=== PATIENT | male | born 1975 | race Caucasian/White ===

== ENCOUNTER 2021-07-30 09:14 | Outpatient (CLI) | payer BC, SELFPAY ==
--- NOTE | 2021-07-30 09:00 | DI.RAD_ITS ---
Exam(s) XR KNEE RT 3V AP,LAT,SHERON EXAM: XR KNEE RT 3V AP,LAT,SHERON CLINICAL HISTORY: fall skiing TECHNIQUE: COMPARISON: No exams were available for comparison FINDINGS: Three views were obtained. There may be a small joint effusion visible on the lateral view of the kn ee. There is no evidence of acute fracture or dislocation. IMPRESSION: RADIATION DOSE DELIVERED: Total DLP
== END 2021-07-30 09:15 | disposition home or self-care (01) ==
LOC: DIORS 09:14
PROVIDERS: PCP Family Medicine; Visit Provider Physician Assistant Surgical
DX: M25.561 Pain in right knee; S89.81XA Other specified injuries of right lower leg, initial encounter; V00.321A Fall from snow-skis, initial encounter
CPT/HCPCS: 73562

== ENCOUNTER 2021-08-12 00:49 | Outpatient (CLI) | payer BC, SELFPAY ==
--- NOTE | 2021-08-12 15:20 | DI.MRI_ITS ---
Exam(s) MR LOWER JOINT RT WO EXAM: MR LOWER JOINT RT WO CLINICAL HISTORY: PAIN,INJURY,acute traumatic internal derangement,s83.104a,s89.91xa. TECHNIQUE: Multiplanar multisequence MRI was performed. COMPARISON: CR XR KNEE RT 3V AP,LAT,SHERON from 07/30/2021 FINDINGS: BONES: Mild marrow edema in the posterior aspect of the medial tibial plateau. No discrete fracture. JOINTS: Articular cartilage is unremarkable. A moderate-sized effusion is present. TENDONS: Extensor mechanism: Unremarkable. Medial retinaculum: Unremarkable. Lateral retinaculum: Unremarkable. Popliteus: Unremarkable. MUSCLES: Unremarkable. MENISCI: There is a longitudinal tear through the posterior horn of the medial meniscus. There is a minimal horizontal component. The root appears intact.. The lateral meniscus is unremarkable. SOFT TISSUES: Unremarkable. LIGAMENTS: Anterior Cruciate: Indistinct, consistent with a full-thickness tear. Posterior Cruciate: Unremarkable. Medial Collateral:Unremarkable. Lateral Collateral: Unremarkable. OTHER: IMPRESSION: 1. Full-thickness tear of the anterior cruciate ligament. 2. Longitudinal tear of the posterior horn of the medial meniscus. DATA REPOSITORY:
== END 2021-08-12 01:09 ==
PROVIDERS: PCP Family Medicine; Visit Provider Student in an Organized Health Care Education/Training Program
DX: M25.561 Pain in right knee (principal); S89.81XA Other specified injuries of right lower leg, initial encounter; M25.461 Effusion, right knee; S83.241A Other tear of medial meniscus, current injury, right knee, initial encounter; S83.511A Sprain of anterior cruciate ligament of right knee, initial encounter; X58.XXXA Exposure to other specified factors, initial encounter
CPT/HCPCS: 73721

== ENCOUNTER 2022-05-15 06:13 | Day surgery (SDC) | payer BC, SELFPAY ==
[2022-05-15] VITALS (12 sets, daily range): BP systolic 84–119; BP diastolic 45–83; PULSE 54–59; RESP 16–21; TEMP 36.3–36.8; O2SAT 57–98; BMI 29.7
[2022-05-15] MEDS: Lactated Ringers 1,000 ML 30 ML IV (06:52)
--- NOTE | 2022-05-15 07:05 | W.ANESPRE ---
General Info Date of Service Date Performed: 05/15/22 Height: 6 ft Weight: 99.5 kg Body Mass Index (BMI): 29.7 Surgical Procedure: Operation Date: 05/15/22 07:40 Proposed Procedure Side Surgeon p Knee ACL Reconstruction (Quadriceps Allograft) and any indicated Meniscal, Chondral or Synovial Surgery Sj Adorno MD Meds Allergies and Home Medications Allergies Allergy/AdvReac Type Severity Reaction Status Date / Time No Known Allergies Allergy Verified 04/08/22 14:59 Home Medication Medication Instructions Recorded sertraline 25 mg tablet (Zoloft) 25 mg PO DAILY 04/08/22 aspirin 81 mg tablet,delayed 81 mg PO DAILY Prevent blood clot 05/15/22 release 14 days #14 tabs naproxen 250 mg tablet 250 - 500 mg PO BID PRN #40 tabs 05/15/22 oxycodone 5 mg tablet 5 - 10 mg PO Q4H PRN moderate to 05/15/22 severe pain #30 tabs Current Visit Medications: Current Medications Generic Name Dose Route Start Last Admin Trade Name Mariana PRN Reason Stop Dose Admin Ringer's Solution 1,000 mls @ 30 mls/hr 05/15/22 06:00 05/15/22 06:52 IV 05/15/22 16:00 30 mls/hr INFUSION GAUTAM Administration Cefazolin Sodium/Dextrose 2 gm in 50 mls @ 100 mls/hr 05/15/22 06:00 Ancef Duplex IVPB 05/15/22 23:59 PREOP GAUTAM IV Miscellaneous Supplies 1 each 05/15/22 06:00 Iv Access IV 05/15/22 23:59 DIRECTED GAUTAM Sodium Chloride 0 ml 05/15/22 06:00 Normal Saline Flush 10 Ml Syr IV 05/15/22 23:59 PRN PRN Sodium Chloride 0 ml 05/15/22 06:00 Normal Saline 10 Ml Vial IJ 05/15/22 23:59 DIRECTED PRN Sterile Water 0 ml 05/15/22 06:00 Water,Injection,Sterile 10 Ml Vial IJ 05/15/22 23:59 DIRECTED PRN PFSH Active Problems Active Problems: Problem Status Onset Code Acute medial meniscal injury of right knee S83.8X1A Right ACL tear 07/08/21 S83.511A Medical History Medical History Anxiety Surgical History Surgical History History of dental surgery History of fracture Jaw wired Tobacco Smoking/Tobacco Use Status: Former Tobacco Use Alcohol Alcohol Intake: current Alcohol intake frequency: 0-2 drinks per day Alcohol type: beer, wine and hard liquor Substance Use Substance use: Occasionally Substance use type: marijuana Vital Signs and Lab Results Vital Signs Most Recent Vital Signs in EMR: Most Recent Vital Signs Temp Pulse Resp BP Pulse Ox 36.8 C 57 L 18 109/77 57 L 05/15/22 06:32 05/15/22 06:32 05/15/22 06:32 05/15/22 06:32 05/15/22 06:32 Lab Results Blood Type / Crossmatch: No Data to Display Complete Blood Count: No Data to Display Complete Metabolic Panel: No Data to Display Liver Function Panel: No Data to Display Coagulation Panel: No Data to Display Cardiac Panel: No Data to Display Arterial Blood Gas: No Data to Display Venous Blood Gas: No Data to Display Pancreas Panel: No Data to Display Thyroid Panel: No Data to Display Infectious Disease: No Data to Display Blood Cultures: No Data to Display Toxicology Panel: No Data to Display Anesthesia Assessment and Plan Anesthesia History Personal History: No History of Anesthesia Complications Family History: No Family History of Anesthesia Complications Exercise Tolerance Exercise Tolerance: Metabolic Equivalents>4 Pertinent Negatives Pertinent Negatives: No Symptoms of GERD, No Major Cardiovascular Symptoms or Complaints, No Major Pulmonary Symptoms or Complaints and No History of CVA/TIA Cardiac & Pulmonary Exam Cardiac Exam: Normal S1/S2 Heart Sounds Pulmonary Exam: Clear Bilateral Breath Sounds Implantable Cardiac Device Does patient have a Pacemaker or an ICD?: No Airway Exam Known Difficult Airway: No Mallampati Class: 1 Mouth Opening: Normal (> 3cm) Thyromental Distance: Greater than 3 cm Neck Range of Motion: Full ROM Neck Circumference: Normal Teeth Condition: Normal Dentition ASA Classification ASA Score: ASA 2 Emergency Case?: No NPO Status NPO Status: NPO Clears >2 hours, Solids >8 hours Anesthesia Plan Resuscitation Status: Full Code Anesthesia Technique: General Anesthesia Airway Planned: Endotracheal Tube Pain Management: Surgeon and patient request nerve block (Right femoral nerve block for post op pain) Monitors Used: Standard Monitors
[2022-05-15] MEDS: ceFAZolin 2 GM/50 ML BAG IVPB (07:39)
--- NOTE | 2022-05-15 08:00 | W.PM.OP ---
Date of service: 05/15/22 Time of Service: 07:30 Operative Note Operative Note DATE OF PROCEDURE: 05/15/22 PRE-OP DIAGNOSIS: Right knee: 1. ACL rupture 2. Medial meniscus tear PROCEDURE: Right knee: 1. ACL reconstruction, CPT #30115: Quadriceps allograft 2. Medial meniscus repair, CPT #28113 SURGEON: Sj Adorno SENIOR FIELD SERVICE ENGINEER: Ashley Hirsch ANESTHESIA TYPE: Local By Surgeon, General LMA/ETT and Primary Nerve Block Refer to Anesthesia Record ESTIMATED BLOOD LOSS: 10 TOURNIQUET TIME: 0 COMPLICATIONS: None Patient was transported to: PACU Patient's condition: stable Implants: Arthrex ACL TightRope II RT and ABS with 8x12 mm cortical button QuadLink pre-sutured quadriceps allograft: 10 x70 mm Indications: Please see complete medical record for details. Findings: Exam under anesthesia: Full range of motion, grossly positive Bindu, stable varus valgus stress Arthroscopic findings: Mild suprapatellar adhesions. Intact lateral compartment. Complete ACL disruption mid substance to proximal with scarring of the tibial stump to the PCL. Vertical fairly nondisplaced medial meniscus tear starting about the body root junction peripherally fairly close to the meniscus and capsule and continuing about alf into the posterior horn becoming more red-white zone. On probing, this portion of the meniscus could be displaced into the medial compartment. Stable root. No additional tears of meniscal body. Articular cartilage intact throughout Procedure Description: In the operating room, general anesthesia was induced. The patient was positioned supine on the operating room table. All bony prominences were well-padded. Preoperative antibiotics were administered. The knee was prepped and draped in the usual sterile fashion. The correct patient, procedure, and side of the procedure were all verified prior to incision. Exam under anesthesia was performed. 20 cc of a 50:50 mixture of bupivacaine and lidocaine containing epinephrine was infiltrated about the planned anteromedial, anterolateral, lateral distal femoral, and pretibial surgery sites. The standard high and tight anterolateral and anteromedial portals were established and a complete diagnostic arthroscopy was performed with relevant findings detailed above. A passport cannula was inserted in both the anteromedial and anterolateral portals. The medial meniscus tear was inspected with findings detailed above. Given the largely red zone location of the tear with healthy tissue, decision was made to proceed with repair, especially considering concomitant ACL reconstruction. A small amount of white zone tissue that was frayed was resected. Due to the peripheral and vertical nature of the tear, an outside in technique was used for the zone near the posterior horn meniscal body junction. An 18-gauge needle was used in an outside?in fashion to trephinate the capsule and peripheral meniscus tissue. The meniscal rasp was used through the tear followed by the shaver to optimize tissue for healing as well. A curved micro suture lasso was used to target the tear starting at the anterior aspect. A small incision was made posterior medially at the joint line about the site with spreading of subcutaneous tissue to expose capsule. A second microsuture lasso was placed from outside to in with 1 device superior to the meniscus and the other inferior. The [employer] claw retriever was used to retrieve the nitinol shuttle sutures and a 0.9 mm suture tape passed back outside the posterior medial knee creating a vertical circumferential repair stitch. An [facility] arthroscopic knot was used to secure this repair down to capsule with the knee in extension. This outside?in vertical circumferential repair was repeated more posteriorly with an additional suture. Lastly, the knee scorpion was used to target the most posterior horn aspect of the tear placed in a circumferential stitch through the remnant meniscal tissue and around the more red-white zone tear in this location and secured with an [facility] arthroscopic knot taking care to direct the knot inferiorly and peripherally. There was excellent repair anatomy and stability of the tear. In the intercondylar area, the ACL remnant was removed leaving enough footprint on the femur and tibia to localize anatomic socket placement. A minimal notchplasty was performed to allow proper visualization of the back wall. The graft was measured and prepared on the back table. The TightRope II BTB and TightRope II ABS adjustable-loop cortical suspensory fixation implants were loaded on QuadLink pre-sutured quadriceps allograft. The femoral and tibial ends each measured 10 mm. The graft was marked at 20 mm from each end. On the ABS side, the tensioning sutures were marked and a shuttle suture was added. The graft was manually tensioned and the construct did not demonstrate any elongation. The graft was then compressed in a 9 mm graft tube and covered with vancomycin soaked sponges. The femoral guide was then placed through the anterolateral portal carefully targeting the appropriate anatomic ACL origin. The outer 9 mm diameter of the guide was positioned with a few millimeters of space between the proximal and posterior articular margins. On the lateral thigh, drill guide position and angle adjusted to about 60 degree angle to the longitudinal axis of the femur in the coronal plane and 20 degree angle to the trans-epicondylar axis in the axial plane to create the most optimal femoral socket. Knife and snap were used to open the skin and IT band and placed the drill guide on bone while maintaining appropriate position on the lateral wall. The tunnel length was noted to be used for marking and passing the femoral button. The flip cutter was then drilled to the appropriate location. The drill guide malleted 7 mm into the cortex. The remainder of the targeting guide removed. The FlipCutter was deployed to 9.5 mm and retrograde reaming done to a depth of 30 mm. Bony debris was removed with the shaver. The flip cutter was then closed, withdrawn, and a FiberStick used to pass a #2 FiberWire shuttle stitch, which was withdrawn out the anterolateral portal. The tibial guide was then used to target the anatomic ACL insertion through the anteromedial portal. The drill angle adjusted to 57.5 degrees and a pretibial incision made. The drill guide was placed on bone, tunnel length noted, and the flip cutter drilled to the appropriate location. The drill guide malleted 7 mm into the cortex. The remainder of the targeting guide removed. The FlipCutter was deployed to 9.5 mm and retrograde reaming done to a depth of 30 mm. Bony debris was removed with the shaver. The flip cutter was then closed, withdrawn, and a FiberStick used to pass a #2 FiberWire shuttle stitch, which was withdrawn out the anteromedial portal. The mechanical shaver was used to remove bone debris as well as chamfer and remove soft tissue from the edges of the sockets. A femoral shuttle sutures were withdrawn out the anterior medial portal. The PassPort was removed. This portal dilated to accommodate the graft size. The graft was brought over to the knee and the femoral sutures shuttled out the lateral thigh and advanced until the button was near the far cortex. Under arthroscopic visualization with the knee slightly hyperflexed, and the button was then passed and flipped on the far cortex. Counter traction was then maintained on the tibial side of the graft while it was carefully advanced into the knee and then about 15 mm into the femoral socket. The tibial sutures were then shuttled through the tibial tunnel and passing stitch removed while carefully noting the tensioning stitches. The graft was then dunked about 15 mm into the tibial socket. 8x12 mm ABS button was then loaded to the ABS loop and tension sutures used to bring the cortical button down to bone. The graft was advanced and then provisionally tensioned on both the femoral and tibial sides. The knee was then cycled 22 times, tensioning rechecked, and final tightening done with the knee in full extension with a moderate reverse Bindu maintained. The graft position and tension were appropriate. There was no impingement in full extension. Bindu exam was stable. Femoral passing sutures were removed. Backup knots were then tied on both sides and suture tails cut. The knee and all portals were copiously irrigated and then knee drained of arthroscopic fluid. 3-0 Monocryl was used to close the portals and small incisions in a buried interrupted fashion. Mastisol, Steri-Strips, Xeroform, 4 x 4 gauze, and sterile soft roll was applied. The extremity was wrapped gently with an Jordi bandage. A soft knee immobilizer placed. The patient awoke from anesthesia without complication and was transferred to the recovery room in a stable condition.
--- NOTE | 2022-05-15 08:06 | W.ANESNERVE ---
Nerve Block Single Injection Procedure Date and Time Date Performed: 05/15/22 Procedure Start: 07:16 Location Where Procedure Performed Procedure Location: Day Surgery Unit Reason Performed: Postoperative Analgesia Requesting Provider: Sj Adorno Timeout Performed Timeout Performed: Yes Monitoring Used ECG, Blood Pressure, SpO2 and See EMR for corresponding vital signs Sterility Sterility: Hand Hygiene, Surgical Cap, Surgical Mask, Sterile Gloves, Sterile Drape/Sheet and Chlorhexidine Sedation Given During Procedure Sedation Given (Indicate Dose Given): Versed IV Dose:: 2 mg Patient Mental Status Patient Mental Status: Sedate with meaningful communication Nerve Block 1st Nerve Block: Laterality: Right Block Type: Femoral Needle / Catheter Used: 100mm SonoPlex II Local Anesthetic Bolus (Indicate Dose Given): Lidocaine used for local infiltration of skin, Injected in 3-5ml increments after negative blood aspiration, Bupivacaine 0.25% Dose:: 10 ml and Exparel Dose:: 10 ml Additives (Indicate Dose Given): None Ultrasound: Sterile probe cover and gel used Ultrasound Image Saved?: Yes Nerve Stimulator: Not Used Paresthesia: None Procedure Tolerated: No Complications and Patient tolerated well Procedure Outcome: Successful Procedure Comment: Ultrasound image saved with DK initials on screen in error. Performed by Loretta Performed By: Lynne Burgos
[2022-05-15] MEDS: Bupivacaine 0.25% Pres-Free W/EPI 30 ML VIAL ×2 (08:13→10:18)
[2022-05-15] MEDS: EPINEPHrine 30 MG/30 ML VIAL (10:03)
--- NOTE | 2022-05-15 12:45 | W.PM.DSUDISC ---
Date of service: 05/15/22 Time of Service: 13:00 Discharge Plan Disposition Patient Disposition: Home Discharge Details Attending Provider: Sj Adorno Primary Care Provider: Ivelisse Mesa Home Meds and New Rx's Prescriptions: New aspirin 81 mg tablet,delayed release (DR/EC) 81 mg PO DAILY 14 Days Qty: 14 0RF naproxen 250 mg tablet 250 - 500 mg PO BID PRNQty: 40 0RF Rx Instructions: take with a meal oxycodone 5 mg tablet 5 - 10 mg PO Q4H MDD 30 mg PRN (Reason: moderate to severe pain) Qty: 30 0RF Continued sertraline [Zoloft] 25 mg tablet 25 mg PO DAILY Discontinued acetaminophen [Tylenol] 325 mg capsule 325 mg PO ONCE PRN ibuprofen 400 mg Tablet 400 mg PO Q6H PRN Discharge Instructions Additional Instructions: Surgery: Right knee arthroscopy with quadriceps allograft ACL reconstruction and medial meniscus repair Activity: Weightbearing in extension-only for 6 weeks. Use crutches and brace as needed to protect and maintain knee straight. Recommend ice and elevation to minimize swelling and discomfort. Encourage quad sets, ankle pumps, and wiggle toes to stimulate muscles and improve circulation. Seated/ non-weight bearing flexion 0-90 degrees maximum for 6 weeks. 120 degrees maximum flexion for 8 weeks. Spin/bike after 8 weeks. No weighted deeper flexion (squats, lunges) for 10 weeks. A physical therapy prescription will be sent electronically to start in about 3 weeks. Prescriptions: Aspirin 81 mg take 1 daily to prevent a blood clot for 14 days Naproxen 250 mg take 1-2 every 12 hours with a meal as needed for moderate pain Oxycodone 5 mg take 1-2 every 4-6 hours as needed for severe pain You may use [id number] Tylenol (acetaminophen) as needed for mild pain. These pain medications may be taken all at once or in different combinations as needed. Also, recommend Colace (docusate) as a stool softener as surgery and pain medicine cause constipation. You may try [id number] diphenhydramine (Benadryl) 25-50 mg nightly as a sleep aid Dressings: Leave dressing in place for 3 days. May then remove and leave open to air or cover incisions with Band-Aids. May shower after 5 days. Follow-up: 10-[address] Adorno May 26 @ 1:15 pm You may take off the leg compression stockings this evening at home. You may also leave them on a few days longer if you have a history of leg swelling or edema. Let us know right away if you develop any redness, drainage, fevers, chest pain, or trouble breathing. Do not drink alcohol or drive for at least 24 hours after anesthesia. Please call the office during business hours with any questions or concerns. Stand Alone Forms: Anesthesia Discharge Inst., Tushar.Nerve Block Instructions, Kelley Gray ([facility]) Discharge Orders Discharge Orders: Discharge Order (Routine); Ordered 05/15/22 Ordered By: Sj Adorno DS: Diagnosis Discharge Diagnosis (1) Acute medial meniscal injury of right knee: Status: Acute (2) Right ACL tear: Status: Acute
--- NOTE | 2022-05-15 19:07 | W.ANESPOSTOP ---
Postoperative Evaluation Date, Time and Location Date Performed: 05/15/22 Time Performed: 19:07 Patient Location: Day Surgery Unit Vital Signs Most Recent Imported Vital Signs: Most Recent Vital Signs Temp Pulse Resp BP Pulse Ox 36.3 C L 54 L 18 101/68 97 05/15/22 12:32 05/15/22 12:32 05/15/22 12:32 05/15/22 12:32 05/15/22 12:32 Pain Score Most Recent Pain Score: Most Recent Pain Score Pain Level 0 05/15/22 12:01 Assessment Mental Status: Awake (Alert & Oriented to Patient Baseline) Airway and Respiratory Function: Patent airway with normal (patient baseline) respiratory exam Cardiovascular Function: Hemodynamically Stable Hydration Status: Adequately Hydrated Nausea & Vomiting: No Nausea or Vomiting Pain: Pt. Denies Any Pain Peripheral Nerve Block: Regional nerve block not resolved at time of post operative discharge Postoperative Comments:: Patient seen earlier today and doing well. Reported some soreness to knee, but overall feeling well.
== END 2022-05-15 13:42 | disposition home or self-care (01) ==
PROVIDERS: PCP Family Medicine; Visit Provider Student in an Organized Health Care Education/Training Program
PROC: (CPT 29888; principal; 2022-05-15 07:30)
DX: S83.511A Sprain of anterior cruciate ligament of right knee, initial encounter (principal); S83.241A Other tear of medial meniscus, current injury, right knee, initial encounter; X58.XXXA Exposure to other specified factors, initial encounter
CPT/HCPCS: 29888; 29882; 76942; J0690; J1100; J1885; J2250; J2405; J2704

== ENCOUNTER 2024-05-20 13:39 | Outpatient (CLI) | payer BC, SELFPAY ==
--- NOTE | 2024-05-20 | DI.RAD_ITS ---
Exam(s) XR CLAVICLE RT EXAM: XR CLAVICLE RT CLINICAL HISTORY: Pain in right shoulder region TECHNIQUE: 2D digital imaging was performed. Two views COMPARISON: No exams were available for comparison FINDINGS: BONES: Mid clavicle fracture with small comminuted fragment. Separation of fracture fragments. No b juan destructive lesion is seen. JOINTS: No dislocation present. AC joint is maintained on SOFT TISSUE: Normal IMPRESSION: Comminuted mid clavicle fracture. DATA REPOSITORY: RADIATION DOSE DELIVERED:
--- NOTE | 2024-05-20 15:14 | DI.VRAD_ITS ---
PROCEDURE INFORMATION: Exam: XR Right Clavicle, Complete Exam date and time: 05/20/2024 1:46 PM Age: 49 years old Clinical indication: Other: Pain in right shoulder region TECHNIQUE: Imaging protocol: Radiologic exam of the right clavicle. Complete exam. Views: Any number of views. COMPARISON: No relevant prior studies available. FINDINGS: Bones/joints: Displaced and comminuted fracture of the right mid clavicle. No dislocation. Soft tissues: Swelling and stranding about the clavicle. IMPRESSION: Acute displaced and comminuted right midclavicular fracture. Dictated and Authenticated by: Kevyn Wagner MD. Ordering:MISTI FUENTES MD
== END 2024-05-20 13:59 ==
LOC: DI 14:11
PROVIDERS: PCP Family Medicine; Visit Provider Nurse Practitioner Family
DX: S42.021A Displaced fracture of shaft of right clavicle, initial encounter for closed fracture (principal); X58.XXXA Exposure to other specified factors, initial encounter
CPT/HCPCS: 73000

== ENCOUNTER 2024-05-26 08:52 | Day surgery (SDC) | payer BC, SELFPAY ==
[2024-05-26] VITALS (33 sets, daily range): BP systolic 120–154; BP diastolic 66–88; PULSE 54–143; RESP 13–21; TEMP 36.5–36.7; O2SAT 95–99; BMI 30.8
--- NOTE | 2024-05-26 07:14 | PDOC.DSDIS_ITS ---
Date of service: 05/26/24 Discharge Plan Disposition Patient Disposition: Home Condition: Stable Discharge Details Attending Provider: Sj Adorno Primary Care Provider: Ivelisse Mesa Home Meds and New Rx's Prescriptions: New naproxen 250 mg tablet 250 - 500 mg PO BID PRN (Reason: moderate pain and swelling) Qty: 40 0RF oxycodone 5 mg tablet 5 - 10 mg PO .q4-6h MDD 30 mg PRN (Reason: severe pain) Qty: 18 0RF Continued sertraline [Zoloft] 25 mg tablet 50 mg PO DAILY Discharge Instructions Additional Instructions: Surgery: Right clavicle ORIF Activity: Nonweightbearing right upper extremity. Use sling for support for a few weeks when out of the home or up and about. Otherwise should remove sling while resting and support forearm on pillows. Encourage increasing elbow, wrist, and hand range of motion to prevent stiffness. Gentle use of hand and fingers okay. A physical therapy prescription will be provided in the office at follow- up if needed. Work instructions: Use sling while at work for about 6 weeks. May return to work when comfortable (usually about 2 weeks) protecting the right collarbone. May use the right upper extremity gently for light tasks like writing/typing. Moderate duty after about 6 weeks with full duty after about 10-12 weeks. Prescriptions: Naproxen 250 mg take 1-2 every 12 hours with a meal as needed for moderate pain Oxycodone 5 mg take 1-2 every every 4-6 hours as needed for moderate-severe pain or discomfort [id number] Tylenol/acetaminophen may be used as needed for mild pain These pain medications may be taken all at once or in different combinations as needed. Dressings: Leave dressing in place until follow-up. Keep clean and dry at all times. Follow-up: 10-[address] Adorno You may take off the leg compression stockings this evening at home. You may also leave them on a few days longer if you have a history of leg swelling or edema. Let us know right away if you develop any redness, drainage, fevers, chest pain, or trouble breathing. Do not drink alcohol or drive for at least 24 hours after anesthesia. Please call the office during business hours with any questions or concerns. Stand Alone Forms: Anesthesia Discharge Inst., Anes.Nerve Block Instructions, Kelley Gray ([facility]) Referrals: Sj Adorno MD [ [facility] STAFF PHYSICIAN] - 06/07/24 11:15 am Discharge Orders Discharge Orders: Discharge Order (Routine); Ordered 05/26/24 Ordered By: Glenna Parnell DS: Diagnosis Discharge Diagnosis (1) Right clavicle fracture: Status: Acute
--- NOTE | 2024-05-26 07:51 | ROE_ITS ---
Operative Note Operative Note PRE-OP DIAGNOSIS: Right displaced clavicle fracture PROCEDURE: Right clavicle open reduction internal fixation, CPT #11229 SURGEON: Sj Adorno TELEPHONE ORDER DISPATCHER: Glenna Parnell ANESTHESIA TYPE: Local By Surgeon, General LMA/ETT and Primary Nerve Block Refer to Anesthesia Record ESTIMATED BLOOD LOSS: 10 COMPLICATIONS: None Patient was transported to: PACU Implants: Synthes 2.7mm VA LCP clavicle plate system LC2 with 1x 2.7mm cortex screw medial & lateral and 3x 2.7mm locking screws medial & lateral Indications: Please see complete medical record for details. Procedure Description: In the operating room, general anesthesia was induced. The patient was positioned supine on the operating room table. All bony prominences were well-padded. Preoperative antibiotics were administered. The clavicle was prepped and draped in the usual sterile fashion. The correct patient, procedure, and side of the procedure were all verified prior to incision. The planned incision was pre-injected with local anesthetic containing epinephrine. The fracture site was approached raising full-thickness flaps down to bone. The incision was extended medially laterally as necessary. Care was taken to preserve soft tissue attachments. The fracture ends were identified. The lateral side was significantly inferior and stuck in soft tissues, but ca refully released. Bone forceps were used to provisionally obtain reduction, which is more challenging given the long oblique fracture as well as the more anterior segmental comminuted piece. 2.5 mm drill was used through the segmental piece from anterior posterior and a suture tape was passed through this hole and tied over the top provisionally securing the lateral portion of fracture. The remainder of the medial to lateral reduction was optimized bone clamps and then a Nice knot suture tape cerclage done to provisionally hold this portion of the fracture together. An appropriate precontoured superior plate was applied and bent down laterally to best fit patient anatomy. It was compressed to bone with a cortex screw on either side of the fracture followed by sequentially filling with locking screws medially and laterally. The plate and fractures were all inspected and demonstrated excellent stability and fixation strength. AP, cephalic tilt, and [id number] fluoroscopy confirm ed appropriate fracture reduction and hardware placement. The wound was copiously irrigated with normal saline. Deep and subcutaneous tissue was closed in a full-thickness watertight fashion with buried interrupted 2-0 Monocryl. Subcuticular layer was closed using running 3-0 Monocryl. Skin glue was applied over the incision followed by a Mepilex Band-Aid. The patient awoke from anesthesia without complication and was transferred to the recovery room in a stable condition. Date of Procedure: 05/26/24
[2024-05-26] MEDS: Lactated Ringers 1,000 ML 30 ML IV (09:34)
--- NOTE | 2024-05-26 11:25 | ANES.PREOP_ITS ---
General Info Date of Service Date Performed: 05/26/24 Height: 6 ft Weight: 103.2 kg Body Mass Index (BMI): 30.8 Surgical Procedure: Operation Date: 05/26/24 10:55 Proposed Procedure Side Surgeon p Shoulder ORIF Clavicle Right Sj Adorno MD Meds Allergies and Home Medications Allergies Allergy/AdvReac Type Severity Reaction Status Date / Time No Known Allergies Allergy Verified 05/26/24 11:22 Home Medication ?Medication ?Instructions ?Recorded sertraline 25 mg tablet (Zoloft) 50 mg PO DAILY 07/29/22 naproxen 250 mg tablet 250 - 500 mg (1 - 2 x 250 mg) PO 05/26/24 BID PRN moderate pain and swelling #40 tabs oxycodone 5 mg tablet 5 - 10 mg (1 - 2 x 5 mg) PO .q4-6h 05/26/24 PRN severe pain #18 tabs Current Visit Medications: Current Medications Generic Name Dose Route Start Last Admin Trade Name Freq PRN Reason Stop Dose Admin Ringer's Solution 1,000 mls @ 30 mls/hr 05/26/24 06:00 05/26/24 09:34 IV 05/26/24 23:59 30 mls/hr INFUSION GAUTAM Administration Cefazolin Sodium/Dextrose 2 gm in 50 mls @ 100 mls/hr 05/26/24 06:00 Ancef Duplex IVPB 05/26/24 23:59 PREOP GAUTAM Tranexamic Acid/Sodium Chloride 1,000 mg in 100 mls @ 600 mls/hr 05/26/24 06:00 IVPB 05/26/24 23:59 PREOP GAUTAM IV Miscellaneous Supplies 1 each 05/26/24 06:00 Iv Access IV 05/26/24 23:59 DIRECTED GAUTAM Oxycodone HCl 0 mg 05/26/24 07:14 Oxycodone 5 Mg Tab PO 06/25/24 07:13 Q3H PRN PRN Pain Sodium Chloride 0 ml 05/26/24 06:00 Normal Saline Flush 10 Ml Syr IV 05/26/24 23:59 PRN PRN Sodium Chloride 0 ml 05/26/24 06:00 Normal Saline 10 Ml Vial IJ 05/26/24 23:59 DIRECTED PRN Sterile Water 0 ml 05/26/24 06:00 Water,Injection,Sterile 10 Ml Vial IJ 05/26/24 23:59 DIRECTED PRN PFS Active Problems Active Problems: Problem Status Onset Code Right clavicle fracture Acute 05/20/24 S42.001A Medical History Medical History Right ACL tear (07/08/21) Acute medial meniscal injury of right knee MCL sprain of right knee (~07/2022) Anxiety Surgical History Surgical History History of dental surgery History of fracture Jaw wired Tobacco Smoking/Tobacco Use Status: Former Tobacco Use Alcohol Alcohol Intake: current Alcohol intake frequency: 0-2 drinks per day Alcohol type: beer, wine and hard liquor Substance Use Substance use: Occasionally Substance use type: marijuana Vital Signs and Lab Results Vital Signs Most Recent Vital Signs in EMR: Most Recent Vital Signs Temp Pulse Resp BP Pulse Ox 36.5 C 57 L 16 122/85 97 05/26/24 09:09 05/26/24 09:09 05/26/24 09:09 05/26/24 09:09 05/26/24 09:09 Lab Results Blood Type / Crossmatch: No Data to Display Complete Blood Count: No Data to Display Complete Metabolic Panel: No Data to Display Liver Function Panel: No Data to Display Coagulation Panel: 2 No Data to Display Cardiac Panel: No Data to Display Arterial Blood Gas: No Data to Display Venous Blood Gas: No Data to Display Pancreas Panel: No Data to Display Thyroid Panel: No Data to Display Infectious Disease: No Data to Display Blood Cultures: No Data to Display Toxicology Panel: No Data to Display Anesthesia Assessment and Plan Anesthesia History Personal History: No History of Anesthesia Complications Family History: No Family History of Anesthesia Complications Exercise Tolerance Exercise Tolerance: Metabolic Equivalents>4 Pertinent Negatives Pertinent Negatives: No Symptoms of GERD, No Major Cardiovascular Symptoms or Complaints and No Major Pulmonary Symptoms or Complaints Cardiac & Pulmonary Exam Cardiac Exam: Normal S1/S2 Heart Sounds Pulmonary Exam: Clear Bilateral Breath Sounds Implantable Cardiac Device Does patient have a Pacemaker or an ICD?: No Airway Exam Known Difficult Airway: No Mallampati Class: 1 Mouth Opening: Normal (> 3cm) Thyromental Distance: Greater than 3 cm Neck Range of Motion: Full ROM Neck Circumference: Normal Teeth Condition: Normal Dentition ASA Classification ASA Score: ASA 2 Emergency Case?: No NPO Status NPO Status: NPO Clears >2 hours, Solids >8 hours Anesthesia Plan Resuscitation Status: Full Code Anesthesia Technique: General Anesthesia Airway Planned: Endotracheal Tube Pain Management: Surgeon and patient request nerve block Monitors Used: Standard Monitors and SedLine
[2024-05-26] MEDS: ceFAZolin 2 GM/50 ML BAG IVPB (12:47)
[2024-05-26] MEDS: TRANEXAMIC ACID/SOD. CHL. 1,000 MG/100 ML BAG 600 MG IVPB (12:55)
--- NOTE | 2024-05-26 13:12 | W.ANESNERVE ---
Nerve Block Single Injection Procedure Date and Time Date Performed: 05/26/24 Procedure Start: 12:37 Location Where Procedure Performed Procedure Location: Day Surgery Unit Reason Performed: Postoperative Analgesia Requesting Provider: Aron Sifuentes Timeout Performed Timeout Performed: Yes Monitoring Used ECG, Blood Pressure and SpO2 Sterility Sterility: Hand Hygiene, Surgical Cap, Surgical Mask, Sterile Gloves and Chlorhexidine Sedation Given During Procedure Sedation Given (Indicate Dose Given): Versed IV Dose:: 2 mg Patient Mental Status Patient Mental Status: Sedate with meaningful communication Nerve Block 1st Nerve Block: Laterality: Right Block Type: Superficial Cervical Plexus Ultrasound Image Saved?: Yes Needle / Catheter Used: 80mm SonoPlex II Local Anesthetic Bolus (Indicate Dose Given): Injected in 3-5ml increments after negative blood aspiration, Bupivacaine 0.25% Dose:: 3.5 mL and Exparel Dose:: 3.5 mL Additives (Indicate Dose Given): None Ultrasound: Sterile probe cover and gel used Nerve Stimulator: Supplement to Ultrasound use and No twitch or parasthesia noted < 0.5 mA Paresthesia: None Procedure Tolerated: No Complications Procedure Outcome: Successful Performed By: Aron Sifuentes
[2024-05-26] MEDS: Bupivacaine 0.25% Pres-Free W/EPI 30 ML VIAL (13:26)
--- NOTE | 2024-05-26 14:40 | DI.RAD_ITS ---
Exam(s) XR CLAVICLE RT LIMITED 1V EXAM: XR CLAVICLE RT LIMITED 1V CLINICAL HISTORY: Right clavicle fracture. TECHNIQUE: 2D and realtime digital imaging was performed. COMPARISON: CR,XR XR CLAVICLE RT from 05/20/2024 FINDINGS: Hard copy images show placement of a fixation plate along the clavicle for fracture fixation. The al ignment is anatomic. Please see procedure note for details. Fluoro time: 7.9seconds RADIATION DOSE DELIVERED: eliceo Zamudio=0.55 mGy
--- NOTE | 2024-05-26 15:31 | W.ANESPOSTOP ---
Postoperative Evaluation Date, Time and Location Date Performed: 05/26/24 Time Performed: 15:31 Patient Location: PACU Vital Signs Most Recent Imported Vital Signs: Most Recent Vital Signs Temp Pulse Resp BP Pulse Ox 36.7 C 143 H 18 154/74 H 95 05/26/24 15:27 05/26/24 15:27 05/26/24 15:27 05/26/24 15:27 05/26/24 15:27 Pain Score Most Recent Pain Score: Most Recent Pain Score Pain Level 3 05/26/24 15:23 Assessment Mental Status: Awake (Alert & Oriented to Patient Baseline) Airway and Respiratory Function: Patent airway with normal (patient baseline) respiratory exam Cardiovascular Function: Hemodynamically Stable Hydration Status: Adequately Hydrated Nausea & Vomiting: No Nausea or Vomiting Pain: Pt. Denies Any Pain Peripheral Nerve Block: Patient did not receive a nerve block
[2024-05-26] MEDS: HYDROmorphone 1 MG/ML SYR IVP (15:40)
== END 2024-05-26 16:59 | disposition home or self-care (01) ==
LOC: SUR 08:52
PROVIDERS: PCP Family Medicine; Visit Provider Student in an Organized Health Care Education/Training Program
PROC: (CPT 23515; principal; 2024-05-26 10:45)
DX: S42.021A Displaced fracture of shaft of right clavicle, initial encounter for closed fracture; X58.XXXA Exposure to other specified factors, initial encounter; G89.18 Other acute postprocedural pain
CPT/HCPCS: 23515; 64450; 76000; 76942; 73000; J0131; J0665; J0666; J0690; J1100; J1171; J1885; J2250; J2405; J2704

== ENCOUNTER 2024-06-07 15:59 | Outpatient (CLI) | payer BC, SELFPAY ==
--- NOTE | 2024-06-07 11:30 | DI.RAD_ITS ---
Exam(s) XR CLAVICLE RT EXAM: XR CLAVICLE RT INDICATION: F/U FRACTURE. COMPARISON: CR,XR XR CLAVICLE RT from 05/20/2024 XA XR CLAVICLE RT LIMITED 1V from 05/26/2024 TECHNIQUE: 2D digital imaging was performed. Two views. FINDINGS: Stable fracture and hardware alignment. There has been some interval healing at the fracture site. No new abnormalities. DATA REPOSITORY: RADIATION DOSE DELIVERED:
== END 2024-06-07 16:00 | disposition home or self-care (01) ==
LOC: DIORS 16:01
PROVIDERS: PCP Family Medicine; Visit Provider Student in an Organized Health Care Education/Training Program
DX: S42.021D Displaced fracture of shaft of right clavicle, subsequent encounter for fracture with routine healing (principal); X58.XXXD Exposure to other specified factors, subsequent encounter
CPT/HCPCS: 73000

== ENCOUNTER 2024-07-19 15:06 | Outpatient (CLI) | payer BC, SELFPAY ==
--- NOTE | 2024-07-19 10:30 | DI.RAD_ITS ---
Exam(s) XR CLAVICLE RT EXAM: XR CLAVICLE RT INDICATION: F/U RIGHT CLAVICLE ORIF. COMPARISON: CR XR CLAVICLE RT from 06/07/2024 TECHNIQUE: 2D digital imaging was performed. Two views. FINDINGS: No change in fracture or hardware alignment. There has been increased healing at the fracture site. No new abnormalities. DATA REPOSITORY: RADIATION DOSE DELIVERED:
== END 2024-07-19 15:07 | disposition home or self-care (01) ==
LOC: DIORS 15:06
PROVIDERS: PCP Family Medicine; Visit Provider Student in an Organized Health Care Education/Training Program
DX: S42.021D Displaced fracture of shaft of right clavicle, subsequent encounter for fracture with routine healing (principal); X58.XXXD Exposure to other specified factors, subsequent encounter
CPT/HCPCS: 73000